=== PATIENT | male | born 1955 | race Caucasian/White ===

== ENCOUNTER 2018-07-27 12:11 | Day surgery (SDC) | payer MEDICARE ==
[~2018-07-27] VITALS: Ht 180.3 cm; Wt 105.7 kg
[~2018-07-27 12:11] MED LIST: ASPIRIN81 MG PO; CENTRUM COMPLE1 EACH PO; FLONASE ALLERG9.9 ML
[2018-07-27] MEDS ORDERED: NORCO 5-325 TA1 EACH PO (12:31)
[2018-07-27] MEDS ORDERED: OMEPRAZOLE20 MG PO (12:54)
--- NOTE | 2018-07-27 14:02 | NUR ---
07/27/18 1402 Sheets,Janny 1356 PT ARRIVED TO PACU ON 2L VIA NC. RESP EVEN AND UNLABORED. PT DENIES NAUSEA AND PAIN. PT ABD ROUND AND SOFT, PT ENCOURAGED TO PASS GAS/AIR.
--- NOTE | 2018-07-28 08:37 | OR ---
[facility] [address], [place] [address] Signed DATE OF OPERATION: 07/27/2018 SURGEON: Mohit Sage MD PREOPERATIVE DIAGNOSIS: History of serrated adenomas, 2007. POSTOPERATIVE DIAGNOSIS: Diverticulosis of sigmoid and left colon. No polyps. PROCEDURE PERFORMED: Total colonoscopy to cecum. ANESTHESIA: Intravenous sedation, fentanyl 150 mcg, Versed 10 mg. INDICATION: This 63-year-old man is a patient Dr. Andrew Garcia of [facility] and is here for surveillance colonoscopy. He has no family history of colon cancer. He underwent colonoscopy in 2007, which showed a serrated adenomas. He was recommended to have repeat colonoscopy in one year, which he did not wish to pursue. He is symptom free currently. He understands risks of bleeding, infection, and perforation related to colonoscopy and wished to proceed. FINDINGS: The prep was good. Complete colonoscopy was undertaken to the cecum without question. He had diverticula scattered in the sigmoid and left colon, but the remaining colon was normal. There were no polyps. DESCRIPTION OF PROCEDURE: The patient was brought to the endoscopy suite, placed in lateral decubitus position, and given intravenous sedation to the point of slurred speech and nystagmus. Digital rectal examination was normal. An Olympus video colonoscope was passed in the rectum and manipulated throughout the colon noting diverticular changes in the sigmoid and left colon. The scope was ultimately advanced to the cecum. The ileocecal valve and appendiceal orifice were normal. Irrigation was undertaken. The scope was carefully withdrawn, and upon withdrawal of scope, no signs of polyps or colitis were noted. Diverticular changes only were seen. Retroflexed view of the rectum was normal. Scope was straightened, Electronically Signed By: MOHIT SAGE MD 07/28/18 0837 PATIENT NAME: TIM GOMEZ OPERATIVE REPORT DATE OF : 51 REPORT #: [id number] PHYSICIAN: MOHIT SAGE MD PCP: NO PRIMARY CARE PHYSICIAN REPORT IS CONFIDENTIAL AND NOT TO BE RELEASED WITHOUT AUTHORIZATION [facility] [address], [place] [address] Signed withdrawn, and removed. The patient was taken to recovery room in good condition. CONCLUDING DIAGNOSIS: Diverticulosis. No sign of recurrent polyps. PLAN: Recommend repeat colonoscopy in 10 years, sooner if clinically indicated. He will return to the ongoing care of Dr. Garcia or other personnel at [facility]. MD ISMA Spencer/MODL /[id number] cc: Andrew Garcia MD Copies: ANDREW GARCIA MD ~ Electronically Signed By: MOHIT SAGE MD 07/28/18 0837 PATIENT NAME: TIM GOMEZ OPERATIVE REPORT DATE OF : 51 REPORT #: [id number] PHYSICIAN: MOHIT SAGE MD PCP: NO PRIMARY CARE PHYSICIAN REPORT IS CONFIDENTIAL AND NOT TO BE RELEASED WITHOUT AUTHORIZATION
== END 2018-07-27 14:28 | disposition home or self-care (01) ==
LOC: DS 12:11 → OPS 12:11 → DS 13:00 → OPS 14:28
PROVIDERS: Surgery
PROC: 0DJD8ZZ Inspection of Lower Intestinal Tract, Via Natural or Artificial Opening Endoscopic (ICD-10-PCS; principal; 2018-07-27 13:00)
DX: Z12.11 Encounter for screening for malignant neoplasm of colon (principal); K57.30 Diverticulosis of large intestine without perforation or abscess without bleeding; I10 Essential (primary) hypertension; J45.909 Unspecified asthma, uncomplicated; M10.9 Gout, unspecified; Z86.010 Personal history of colon polyps; Z88.6 Allergy status to analgesic agent; Z87.19 Personal history of other diseases of the digestive system; Z98.890 Other specified postprocedural states
CPT/HCPCS: 99153; G0500; J2250; J3010; J7120

== ENCOUNTER 2019-07-12 10:19 | Emergency (ER) | payer MEDICARE ==
[~2019-07-12] VITALS: Ht 180.3 cm; Wt 108.9 kg
[~2019-07-12 10:19] MED LIST changes: +NORCO 5-325 TA1 EACH PO; +OMEPRAZOLE20 MG PO
--- OUTSIDE RECORDS SUMMARY | 2019-07-12 10:24 | XMS ---
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 Herlinda has no Care Guidelines for this patient. Paige VISIT COUNT (12 MO.) 1 PAUL Schmidt TOTAL 1 NOTE: Visits indicate total known visits. ED/C VISIT TRACKING (12 MO.) 07/12/2019 10:20 PAUL Reyna OR TYPE: Emergency COMPLAINT: - L ANKLE PAIN INPATIENT VISIT TRACKING (12 MO.) No inpatient visits to display in this time frame [email or web address]
== END 2019-07-12 11:58 | disposition home or self-care (01) ==
LOC: ED 10:19
DX: S93.402A Sprain of unspecified ligament of left ankle, initial encounter (principal); X50.9XXA Other and unspecified overexertion or strenuous movements or postures, initial encounter; Z87.891 Personal history of nicotine dependence; Z88.6 Allergy status to analgesic agent; Z79.899 Other long term (current) drug therapy; Z79.891 Long term (current) use of opiate analgesic
CPT/HCPCS: 73610; 99283-25

== ENCOUNTER 2019-07-13 10:28 | Emergency (ER) | payer MEDICARE ==
[~2019-07-13] VITALS: Ht 180.3 cm; Wt 109.5 kg
--- OUTSIDE RECORDS SUMMARY | 2019-07-13 10:32 | XMS ---
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 Care History Medical/Surgical 07/13/2019 [facility] - PATIENT IS A [facility] ELIGIBLE, \T\middot;\T\nbsp; PLEASE REFER PATIENT TO [facility] FOR NON EMERGENT MEDICAL NEEDS. \T\middot;\T\nbsp; [facility] CAN SEE PATIENTS SAME DAY FOR APTS IF PATIENT CALLS FIRST THING IN THE MORNING. E.D. VISIT COUNT (12 MO.) 2 [facility] TOTAL 2 NOTE: Visits indicate total known visits. ED/UCC VISIT TRACKING (12 MO.) 07/13/2019 10:29 PAUL Reyna OR TYPE: Emergency COMPLAINT: - L ANKLE INJURY 07/12/2019 10:20 PAUL Reyna OR TYPE: Emergency COMPLAINT: - L ANKLE PAIN INPATIENT VISIT TRACKING (12 MO.) No inpatient visits to display in this time frame [email or web address]
== END 2019-07-13 10:46 | disposition home or self-care (01) ==
LOC: ED 10:28
DX: S99.912A Unspecified injury of left ankle, initial encounter (principal); X58.XXXA Exposure to other specified factors, initial encounter